=== PATIENT | female | born 1960 | race Caucasian/White ===

== ENCOUNTER → 2022-07-26 | Outpatient (CLI) | payer MEDICARE ==
--- NOTE | 2022-07-26 12:11 | CT ---
EXAMINATION TYPE: CT angio chest CT DLP: 297.9 mGycm, Automated exposure control for dose reduction was used. DATE OF EXAM: 07/26/2022 11:59 AM COMPARISON: None CLINICAL INDICATION:Female, 62 years old with history of R06.02; PE TECHNIQUE/CONTRAST: CTA scan of the thorax is performed with IV Contrast, patient injected with 50 mL of Isovue 300, pulm onary embolism protocol. MIP images are created and reviewed. FINDINGS: Pulmonary Artery: There is no evidence for a central filling defect within the pulmonary vasculature to suggest acute pulmonary embolism. Limited evaluation of the subsegmental branches secondary to randall us timing. The pulmonary artery is of normal size. There is reflux of contrast into the IVC. Lungs/Pleura: No evidence of focal consolidation, pleural effusion or pneumothorax. Linear scarring a nd/or atelectasis within the left lower lobe. Airway: Large airways are patent. Heart: Not enlarged. No pericardial effusion. Vasculature: Ascending thoracic aortic aneurysm measuring up to 4.0 cm. Mediastinum: No gross evidence of adenopathy. Musculoskeletal: No acute osseous abnormalities. Benign vertebral hemangioma involving the T11 verteb ral body. Soft Tissues: Unremarkable. Lower neck: No significant findings. Upper Abdomen: No significant findings. IMPRESSION: 1. No evidence of central pulmonary embolism. Limited evaluation of the subsegmental branches. 2. Ascending thoracic aortic aneurysm measuring up to 4.0 cm.
== END | disposition home or self-care (01) ==
LOC: RADCTMAIN 10:56
PROVIDERS: ATTEND Physician Assistant
DX: I71.21 Aneurysm of the ascending aorta, without rupture (principal); R06.02 Shortness of breath; R07.1 Chest pain on breathing; M54.6 Pain in thoracic spine
CPT/HCPCS: 71275; Q9967

== ENCOUNTER → 2022-08-06 | Outpatient (CLI) | payer MEDICARE | END | disposition home or self-care (01) | LOC: LABWHC1 12:43 | PROVIDERS: ATTEND Physician Assistant | DX: Z77.120 Contact with and (suspected) exposure to mold (toxic) (principal) ==

== ENCOUNTER → 2022-08-22 | Outpatient (CLI) | payer MEDICARE ==
--- NOTE | 2022-08-23 17:53 | MR ---
EXAMINATION TYPE: MR thoracic spine wo/w con DATE OF EXAM: 08/22/2022 COMPARISON: Correlation CT chest 07/26/2022 HISTORY: 62-year-old female D18.00, M54.6, Mid back pain, hemangioma Technique: Multiplanar, multisequence images of the thoracic spine were obtained before and after adm inistration of 8 mL intravenous Gadavist gadolinium contrast. FINDINGS: There is levoconvex curvature centered along the upper thoracic spine. Accentuated mid thoracic kypho sis. There is moderate degenerative disc disease with desiccated, and air, and bulging discs. Small e ndplate Schmorl's nodes mid thoracic spine. Overall vertebral body heights are preserved and alignment is maintained. Disc osteophyte complex are present at multiple levels in the cervical spine with impression and mild indentation onto the ventral cord at multiple levels. Variable mild to moderate spinal canal stenose s are present particularly at C3-C4, C4-C5, and C5-C6. There is a left paracentral disc protrusion at T5-T6, T6/T7, T7-T8. No significant spinal canal steno sis seen within the thoracic spine. Normal course, caliber, and signal intensity of the thoracic spinal cord. No abnormal enhancement wit hin the spinal canal. A 2.4 cm T2 and T1 bright round lesion within the T11 vertebral body shows heterogeneous enhancement. Stippled and corduroy appearance is typical of a fatty matrix hemangioma. Scattered facet arthropathy. Very minimal mild neuroforaminal stenoses within the upper thoracic spin e. IMPRESSION: 1. A 2.4 cm benign, fatty matrix hemangioma of the T11 vertebral body. 2. Moderate degenerative disc disease throughout the thoracic spine. Slight levoconvex curvature eleanor g the upper third thoracic spine and accentuated mid thoracic kyphosis. No vertebral compression princess apse or malalignment. 3. Disc osteophyte complexes cause variable mild and moderate spinal canal stenoses in the cervical s pine. No large focal disc herniation or significant spinal canal stenosis in the thoracic spine. 4. Small left paracentral disc protrusions are present from T5 through T8 levels. Again, no significa nt spinal canal stenosis.
== END | disposition home or self-care (01) ==
LOC: MERGE 10:35 → RADMRIMAIN 10:35
PROVIDERS: ATTEND Family Medicine
DX: D18.00 Hemangioma unspecified site (principal); M51.34 Other intervertebral disc degeneration, thoracic region; M25.78 Osteophyte, vertebrae; M48.02 Spinal stenosis, cervical region; M51.24 Other intervertebral disc displacement, thoracic region
CPT/HCPCS: 72157; A9585

== ENCOUNTER 2024-01-08 07:26 | Inpatient (IN) | payer MEDICARE ==
--- NOTE | 2024-01-08 08:07 | ED ---
Arrhythmia/Palpitations HPI - General Chief Complaint: Arrhythmia/Palpitations Stated Complaint: fast heart rate/SOB Time Seen by Provider: 01/08/24 07:29 Source: patient, RN notes reviewed Mode of arrival: ambulatory Limitations: no limitations - History of Present Illness Initial Comments: 63-year-old female presents emergency department complaint of palpitations, shortness of breath. Patient states that she has been ill with an upper respiratory infection and was given steroids and just finished a course steroids. Patient states that she felt like her heart was racing she was recently placed on metoprolol this week started at 12.5 twice daily and switch to 25 mg twice daily. Patient states she still having his palpitations and felt worse this morning. She states she had a Holter monitor in the past which showed some irregular rhythm but was never diagnosed with A-fib. Patient denies any fever no chest pain currently. Denies any leg pain or leg swelling. - Related Data Home Medications Medication Instructions Recorded Confirmed Cyclobenzaprine [Flexeril] 10 mg PO DAILY PRN 07/26/22 01/08/24 HYDROcodone/APAP 7.5-325MG [[place] 1 tab PO DAILY PRN 07/26/22 01/08/24 7.5-325] L.acidoph,Paracasei, B.lactis 1 cap PO DAILY 07/26/22 01/08/24 [Probiotic] Mecobalamin [Methyl B-12] 1,000 mcg PO DAILY 07/26/22 01/08/24 Rascon Revive Supplement 1 tab PO DAILY 01/08/24 01/08/24 Metoprolol Succinate [Metoprolol 37.5 mg PO DAILY 01/08/24 01/08/24 Succinate ER] Zinc Picolinate 50 mg PO DAILY 01/08/24 01/08/24 Allergies Allergy/AdvReac Type Severity Reaction Status Date / Time Penicillins Allergy Unknown Verified 01/08/24 09:43 Childhood Sulfa (Sulfonamide Allergy Anaphylaxis Verified 01/08/24 09:43 Antibiotics) tetanus and diphtheria Allergy Unknown Verified 01/08/24 09:43 toxoids Childhood Review of Systems ROS Statement: Those systems with pertinent positive or pertinent negative responses have been documented in the HPI. ROS Other: All systems not noted in ROS Statement are negative. Past Medical History Past Medical History: GERD/Reflux Additional Past Medical History / Comment(s): spinal stenosis, History of Any Multi-Drug Resistant Organisms: None Reported Past Surgical History: Adenoidectomy, Tonsillectomy Past Psychological History: No Psychological Hx Reported Smoking Status: Never smoker Past Alcohol Use History: None Reported Past Drug Use History: None Reported General Exam Limitations: no limitations General appearance: alert, in no apparent distress Head exam: Present: atraumatic, normocephalic, normal inspection Neck exam: Present: normal inspection. Absent: tenderness, meningismus, lym phadenopathy Respiratory exam: Present: normal lung sounds bilaterally. Absent: respiratory distress, wheezes, rales, rhonchi, stridor Cardiovascular Exam: Present: tachycardia, irregular rhythm, normal heart sounds. Absent: regular rate, normal rhythm, systolic murmur, diastolic murmur, rubs, gallop, clicks GI/Abdominal exam: Present: soft, normal bowel sounds. Absent: distended, tenderness, guarding, rebound, rigid Course Vital Signs 01/08/24 01/08/24 01/08/24 07:28 10:26 11:00 Temperature 97.8 F Pulse Rate 134 H 104 H 109 H Respiratory 20 16 22 Rate Blood Pressure 130/75 117/70 93/67 O2 Sat by Pulse 100 98 98 Oximetry 01/08/24 11:30 Temperature Pulse Rate 94 Respiratory 16 Rate Blood Pressure 122/91 O2 Sat by Pulse 97 Oximetry EKG Findings - EKG Comments: EKG Findings:: EKG performed at 7: 38 A-fib with a rate of 119 QRS 89 QT/QTc 314/386 - EKG Results: EKG: interpreted by CASTRO Medical Decision Making - Medical Decision Making Was pt. sent in by a medical professional or institution (, PA, STYLIST APPRENTICE, urgent care, hospital, or snf...) When possible be specific @ -No Did you speak to anyone other than the patient for history (EMS, parent, family, police, friend...)? What history was obtained from this source @ -No Did you review nursing and triage notes (agree or disagree)? Why? @ -I reviewed and agree with nursing and triage notes Were old charts reviewed (outside hosp., previous admission, EMS record, old EKG, old radiological studies, urgent care reports/EKG's, snf records)? Report findings @ -No old charts were reviewed Differential Diagnosis (chest pain, altered mental status, abdominal pain women, abdominal pain men, vaginal bleeding, weakness, fever, dyspnea, syncope, headache, dizziness, GI bleed, back pain, seizure, CVA, palpatations, mental health, musculoskeletal)? @ -Differential Palpitations Ventricular arrhythmias, atrial arrhythmias, myocardial infarction, anemia, thyrotoxicosis, electrolyte imbalance, hypokalemia, pulmonary embolism, pulmonary disease, drugs, alcohol, anxiety, stress.... This is not meant to be an all-inclusive list. EKG interpreted by me (3pts min.). @ -As above X-rays interpreted by me (1pt min.). @ -Chest ray shows no acute cardiopulmonary process CT interpreted by me (1pt min.). @ -None done U/S interpreted by me (1pt. min.). @ -None done What testing was considered but not performed or refused? (CT, X-rays, U/S, labs)? Why? @ -None What meds were considered but not given or refused? Why? @ -None Did you discuss the management of the patient with other professionals ( professionals i.e. , PA, STYLIST APPRENTICE, lab, RT, psych nurse, clinical social work therapist, apprentice painter neckties, teacher, purchasing officer, human services case manager)? Give summary @ -Sound physician for admission Was smoking cessation discussed for >3mins.? @ -No Was critical care preformed (if so, how long)? @ -35 minutes Were there social determinants of health that impacted care today? How? (Homelessness, low income, unemployed, alcoholism, drug addiction, transportation, low edu. Level, literacy, decrease access to med. care, long-term, rehab)? @ -No Was there de-escalation of care discussed even if they declined (Discuss DNR or withdrawal of care, Hospice)? DNR status @ -No What co-morbidities impacted this encounter? (DM, HTN, Smoking, COPD, CAD, Cancer, CVA, ARF, Chemo, Hep., AIDS, mental health diagnosis, sleep apnea, morbid obesity)? @ -None Was patient admitted / discharged? Hospital course, mention meds given and route, prescriptions, significant lab abnormalities, going to OR and other pertinent info. @ -Admitted patient's found to be in A-fib RVR patient was started on Cardizem after Cardizem bolus patient's laboratory studies unremarkable. Patient will continue Cardizem cardiology evaluation. Patient was also started on heparin. Undiagnosed new problem with uncertain prognosis? @ -No Drug Therapy requiring intensive monitoring for toxicity (Heparin, Nitro, Insulin, Cardizem)? @ -Heparin, Cardizem Were any procedures done? @ -No Diagnosis/symptom? @ -A-fib RVR Acute, or Chronic, or Acute on Chronic? @ -Acute Uncomplicated (without systemic symptoms) or Complicated (systemic symptoms)? @ -Complicated Side effects of treatment? @ -No Exacerbation, Progression, or Severe Exacerbation? @ -No Poses a threat to life or bodily function? How? (Chest pain, [place], MA, pneumonia, PE, COPD, DKA, ARF, appy, cholecystitis, CVA, Diverticulitis, Homicidal, Suicidal, threat to staff... and all critical care pts) @ -Yes dysrhythmia possible cardiac arrest - Lab Data Result diagrams: 01/08/24 09:31 01/08/24 09:31 Lab Results 01/08/24 01/08/24 01/08/24 Range/Units 09:31 09:31 09:31 WBC 6.4 (3.8-10.6) k/uL RBC 4.61 (3.80-5.40) m/uL Hgb 13.7 (11.4-16.0) gm/dL Hct 42.4 (34.0-46.0) % MCV 92.0 (80.0-100.0) fL MCH 29.6 (25.0-35.0) pg MCHC 32.2 (31.0-37.0) g/dL RDW 12.7 (11.5-15.5) % Plt Count 230 (150-450) k/uL MPV 7.7 Neutrophils % 60 % Lymphocytes % 26 % Monocytes % 5 % Eosinophils % 7 % Basophils % 1 % Neutrophils # 3.9 (1.3-7.7) k/uL Lymphocytes # 1.7 (1.0-4.8) k/uL Monocytes # 0.3 (0-1.0) k/uL Eosinophils # 0.5 (0-0.7) k/uL Basophils # 0.0 (0-0.2) k/uL PT 11.3 (10.0-12.5) sec INR 1.0 (<1.2) APTT 24.2 (22.0-30.0) sec Sodium 139 (137-145) mmol/L Potassium 5.5 H (3.5-5.1) mmol/L Chloride 106 (98-107) mmol/L Carbon Dioxide 24 (22-30) mmol/L Anion Gap 9 mmol/L BUN 13 (7-17) mg/dL Creatinine 0.67 (0.52-1.04) mg/dL Est GFR (CKD-EPI)AfAm >90 (>60 ml/min/1.73 sqM) Est GFR (CKD-EPI)NonAf >90 (>60 ml/min/1.73 sqM) Glucose 107 H (74-99) mg/dL Calcium 9.6 (8.4-10.2) mg/dL Magnesium 2.0 (1.6-2.3) mg/dL Total Bilirubin 1.8 H (0.2-1.3) mg/dL AST 40 H (14-36) U/L ALT 58 H (4-34) U/L Alkaline Phosphatase 55 (38-126) U/L Troponin I (0.000-0.034) ng/mL Total Protein 7.5 (6.3-8.2) g/dL Albumin 4.7 (3.5-5.0) g/dL 01/08/24 Range/Units 09:31 WBC (3.8-10.6) k/uL RBC (3.80-5.40) m/uL Hgb (11.4-16.0) gm/dL Hct (34.0-46.0) % MCV (80.0-100.0) fL MCH (25.0-35.0) pg MCHC (31.0-37.0) g/dL RDW (11.5-15.5) % Plt Count (150-450) k/uL MPV Neutrophils % % Lymphocytes % % Monocytes % % Eosinophils % % Basophils % % Neutrophils # (1.3-7.7) k/uL Lymphocytes # (1.0-4.8) k/uL Monocytes # (0-1.0) k/uL Eosinophils # (0-0.7) k/uL Basophils # (0-0.2) k/uL PT (10.0-12.5) sec INR (<1.2) APTT (22.0-30.0) sec Sodium (137-145) mmol/L Potassium (3.5-5.1) mmol/L Chloride (98-107) mmol/L Carbon Dioxide (22-30) mmol/L Anion Gap mmol/L BUN (7-17) mg/dL Creatinine (0.52-1.04) mg/dL Est GFR (CKD-EPI)AfAm (>60 ml/min/1.73 sqM) Est GFR (CKD-EPI)NonAf (>60 ml/min/1.73 sqM) Glucose (74-99) mg/dL Calcium (8.4-10.2) mg/dL Magnesium (1.6-2.3) mg/dL Total Bilirubin (0.2-1.3) mg/dL AST (14-36) U/L ALT (4-34) U/L Alkaline Phosphatase (38-126) U/L Troponin I <0.012 (0.000-0.034) ng/mL Total Protein (6.3-8.2) g/dL Albumin (3.5-5.0) g/dL Critical Care Time Critical Care Time: Yes Total Critical Care Time: 35 Disposition Clinical Impression: Atrial fibrillation with RVR Disposition: ADMITTED IP TO THIS HOSP Referrals: Vinny Calero DO [Primary Care Provider] - 1-2 days Time of Disposition: 11:44
--- NOTE | 2024-01-08 09:34 | XR ---
EXAMINATION TYPE: XR chest 2V DATE OF EXAM: 01/08/2024 COMPARISON: None INDICATION: Dysrhythmia TECHNIQUE: Frontal and lateral views of the chest are obtained. FINDINGS: The heart size is normal. The pulmonary vasculature is normal. The lungs are clear. IMPRESSION: 1. No acute pulmonary process. [facility], , 01/08/2024 9:31 AM
[2024-01-08 10:09] LABS: Basophils % (A) 1 %; Eosinophils # (A) 0.5 k/uL (0-0.7); Eosinophils % (A) 7 %; HCT 42.4 % (34.0-46.0); HGB 13.7 gm/dL (11.4-16.0); Lymphocytes # (A) 1.7 k/uL (1.0-4.8); Lymphocytes % (A) 26 %; MCH 29.6 pg (25.0-35.0); MCHC 32.2 g/dL (31.0-37.0); Mean Platelet Volume 7.7; Monocytes # (A) 0.3 k/uL (0-1.0); Monocytes % (A) 5 %; Neutrophils # (A) 3.9 k/uL (1.3-7.7); Neutrophils % (A) 60 %; Platelet Count 230 k/uL (150-450); RBC 4.61 m/uL (3.80-5.40); RDW 12.7 % (11.5-15.5); WBC 6.4 k/uL (3.8-10.6)
[2024-01-08] MEDS: SODIUM CHLORIDE 0.9% 1,000 ML IV STA (10:13)
[2024-01-08] MEDS: DILTIAZEM 125 MG in SODIUM CHLORIDE 0.9% 100 ML IV SCH (10:14)
[2024-01-08] MEDS: DILTIAZEM DRIP BOLUS FROM BAG 1 MG SOLN IV ONE (10:15)
[2024-01-08 10:24] LABS: ALT 58 U/L (4-34); African American GFR (CKD) >90 (>60 ml/min/1.73 sqM); Anion Gap 9 mmol/L; Blood Urea Nitrogen 13 mg/dL (7-17); Calcium 9.6 mg/dL (8.4-10.2); Carbon Dioxide 24 mmol/L (22-30); Chloride 106 mmol/L (98-107); Glucose 107 mg/dL (74-99); Non-African American GFR(CKD) >90 (>60 ml/min/1.73 sqM); Sodium 139 mmol/L (137-145); Total Bilirubin 1.8 mg/dL (0.2-1.3)
[2024-01-08 10:30] LABS: Partial Thromboplastin Time 24.2 sec (22.0-30.0); Prothrombin Time 11.3 sec (10.0-12.5)
[2024-01-08 10:56] LABS: Potassium 5.5 mmol/L (3.5-5.1)
[2024-01-08 10:57] LABS: AST 40 U/L (14-36); Albumin 4.7 g/dL (3.5-5.0); Alkaline Phosphatase 55 U/L (38-126); Total Protein 7.5 g/dL (6.3-8.2)
[2024-01-08] MEDS ORDERED: HEPARIN SODIUM 1,000 UN/ML (10ML VL) IV PRN (11:38)
[2024-01-08] MEDS ORDERED: NITROGLYCERIN SL TABS 0.4 MG TAB SUBLINGUAL PRN (11:44)
[2024-01-08] MEDS: HEPARIN SOD,PORK IN 0.45% NACL 25,000 UNIT in 0.45% NACL 1 250ML.BAG IV SCH (12:57)
[2024-01-08] MEDS: HEPARIN SODIUM 1,000 UN/ML (10ML VL) IV ONE (12:58)
[2024-01-08] MEDS: METOPROLOL TARTRATE 50 MG TAB PO SCH (13:10)
[2024-01-08] MEDS: APIXABAN 5 MG TAB PO SCH (13:10)
--- NOTE | 2024-01-08 14:10 | P.CRDCN ---
History of Present Illness Consult date: 01/08/24 Reason for Consult (text): AFib with RVR History of present illness: This is a 63-year-old female patient with past medical history of chronic back pain, CVA in 2008. We have been asked to evaluate the patient for A-fib with RVR. Patient states that she is scheduled to see a sole tacker at [facility]ology [facility]. She was diagnosed with atrial fibrillation last week by her PCP. She recently had a virus with a cough and steroids were provided at that time. She is feels that she feels different since she had the virus but not more specific than this. She denies having any palpitations. No shortness of breath. She continues to have a cough. She did see her PCP yesterday and was instructed to come into the hospital for further evaluation. 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 No shortness of breath, no chest pain, no dizziness no syncopal episodes. She denies any lower extremity edema. No PND. She normally sleeps once 6 pillows now but usually it is 3 pillows. She is a non-smoker. No history of hypertension or hyperlipidemia. She drinks caffeine daily. No alcohol for the past couple years due to causing migraines. She has an order in place to start her on heparin drip. Patient has been started on Cardizem drip following a 10 mg bolus. Blood pressure 124/102, heart rate 130. Patient is seen today in the emergency center waiting for a bed on the cardiac stepdown unit. EKG: Atrial fibrillation 119 bpm Chest x-ray: No acute process Laboratory studies: CBC normal. Potassium 5.5, creatinine 0.67, magnesium 2. AST 40, ALT 50, alkaline phosphatase 55, total bilirubin 1.8. Troponin negative x 2. Home cardiac medications: Metoprolol succinate 37.5 mg daily Review Of Systems: At the time of my exam: CONSTITUTIONAL: Denies fever or chills. HEENT: Denies blurred vision, vision changes, or eye pain. Denies hemoptysis CARDIOVASCULAR: Denies chest pain. Denies orthopnea. Denies PND. Denies palpitations RESPIRATORY: Denies shortness of breath. GASTROINTESTINAL: Denies abdominal pain. Denies nausea or vomiting. HEMATOLOGIC: Denies bleeding disorders. GENITOURINARY: Denies any blood in urine. SKIN: Denies puritis. Denies rash. Physical examination: Gen: This is a 63-year-old female in no acute distress VS: reviewed HEENT: Head is atraumatic, normocephalic. Pupils equal, round. Sclerae is anicteric. NECK: Supple. No JVD. LUNGS: Clear to auscultation. No wheezes or rhonchi. No intercostal retractions. HEART: Regular rate and rhythm. No murmur. ABDOMEN: Soft No tenderness. EXTREMITIES: No pedal edema. No calf tenderness. NEUROLOGICAL: Patient is awake, alert and oriented x3. Assessment: New onset paroxysmal atrial fibrillation presenting with RVR Chronic back pain CVA in 2008 Plan: Discontinue heparin drip and start patient on Eliquis 5 mg twice daily Start patient on Lopressor 50 mg twice daily and if heart rate is controlled, discontinue Cardizem drip Obtain 2-D echocardiogram and Doppler study to assess cardiac structure and function Further recommendations to follow based upon clinical course Thank you kindly for this consultation. Nurse practitioner note has been reviewed, I agree with documented findings and plan of care. Patient was seen and examined. Past Medical History Past Medical History: GERD/Reflux Additional Past Medical History / Comment(s): spinal stenosis, History of Any Multi-Drug Resistant Organisms: None Reported Past Surgical History: Adenoidectomy, Tonsillectomy Past Psychological History: No Psychological Hx Reported Smoking Status: Never smoker Past Alcohol Use History: None Reported Past Drug Use History: None Reported Medications and Allergies Home Medications Medication Instructions Recorded Confirmed Type Cyclobenzaprine [Flexeril] 10 mg PO DAILY PRN 07/26/22 01/08/24 History HYDROcodone/APAP 7.5-325MG [[place] 1 tab PO DAILY PRN 07/26/22 01/08/24 History 7.5-325] L.acidoph,Paracasei, B.lactis 1 cap PO DAILY 07/26/22 01/08/24 History [Probiotic] Mecobalamin [Methyl B-12] 1,000 mcg PO DAILY 07/26/22 01/08/24 History Rascon Revive Supplement 1 tab PO DAILY 01/08/24 01/08/24 History Metoprolol Succinate [Metoprolol 37.5 mg PO DAILY 01/08/24 01/08/24 History Succinate ER] Zinc Picolinate 50 mg PO DAILY 01/08/24 01/08/24 History Allergies Allergy/AdvReac Type Severity Reaction Status Date / Time Penicillins Allergy Unknown Verified 01/08/24 09:43 Childhood Sulfa (Sulfonamide Allergy Anaphylaxis Verified 01/08/24 09:43 Antibiotics) tetanus and diphtheria Allergy Unknown Verified 01/08/24 09:43 toxoids Childhood Physical Exam Vitals: Vital Signs Temp Pulse Resp BP Pulse Ox 01/08/24 11:54 124 H 01/08/24 11:30 94 16 122/91 97 01/08/24 11:00 109 H 22 93/67 98 01/08/24 10:26 104 H 16 117/70 98 01/08/24 07:28 97.8 F 134 H 20 130/75 100 Intake and Output 01/07/24 01/08/24 01/08/24 22:59 06:59 14:59 Other: Weight 86.183 kg Results 01/08/24 09:31 01/08/24 09:31 Cardiac Enzymes 01/08/24 01/08/24 Range/Units 09:31 09:31 AST 40 H (14-36) U/L Troponin I <0.012 (0.000-0.034) ng/mL Coagulation 01/08/24 Range/Units 09:31 PT 11.3 (10.0-12.5) sec APTT 24.2 (22.0-30.0) sec CBC 01/08/24 Range/Units 09:31 WBC 6.4 (3.8-10.6) k/uL RBC 4.61 (3.80-5.40) m/uL Hgb 13.7 (11.4-16.0) gm/dL Hct 42.4 (34.0-46.0) % Plt Count 230 (150-450) k/uL Comprehensive Metabolic Panel 01/08/24 Range/Units 09:31 Sodium 139 (137-145) mmol/L Potassium 5.5 H (3.5-5.1) mmol/L Chloride 106 (98-107) mmol/L Carbon Dioxide 24 (22-30) mmol/L BUN 13 (7-17) mg/dL Creatinine 0.67 (0.52-1.04) mg/dL Glucose 107 H (74-99) mg/dL Calcium 9.6 (8.4-10.2) mg/dL AST 40 H (14-36) U/L ALT 58 H (4-34) U/L Alkaline Phosphatase 55 (38-126) U/L Total Protein 7.5 (6.3-8.2) g/dL Albumin 4.7 (3.5-5.0) g/dL Current Medications Generic Name Dose Route Start Last Admin Trade Name Freq PRN Reason Stop Dose Admin Heparin Sodium (Porcine) 0 unit 01/08/24 11:38 Heparin Sodium 1,000 Un/Ml (10ml Vl) IV PER PROTOCOL PRN Low PTT Protocol Diltiazem HCl 125 mg/ Sodium 125 mls @ 5 mls/hr 01/08/24 09:45 01/08/24 10:14 Chloride IV 5 mg/hr .Q24H JOHANNE 5 mls/hr Administration 5 MG/HR Heparin Sodium/Sodium Chloride 250 mls @ 10 mls/hr 01/08/24 11:45 25,000 unit/ Sodium Chloride IV .Q24H JOHANNE Protocol 11.603 UNITS/KG/HR Nitroglycerin 0.4 mg 01/08/24 11:44 Nitroglycerin Sl Tabs 0.4 Mg Tab SUBLINGUAL Q5M PRN Chest Pain Intake and Output 01/07/24 01/08/24 01/08/24 22:59 06:59 14:59 Other: Weight 86.183 kg Patient Weight 01/09/24 06:59 Weight 86.183 kg 01/08/24 09:31 01/08/24 09:31
--- NOTE | 2024-01-08 16:16 | P.HPIM ---
History of Present Illness H&P Date: 01/08/24 63 year old F with PMH of CVA in 2008 presents to the ED. She reports viral URI 3 weeks ago (productive cough with yellow sputum and sore throat) that resolved. She did take a course of steroids at that time. Since then she reports intermittent palpitations with HR as high as 158. She reports orthopnea and sleeps on 6 pillows. She denies any exertional shortness of breath or lower extremity edema. No chest pain or dizziness. Does not smoke cigarettes or drink alcohol. One cup of coffee in the morning. She got prescribed Metoprolol 37.5 mg PO BID but symptoms persisted which prompted her to come to the ED. In the ED she underwent extensive evaluation. BP 103/75, HR 134, RR 20, T 97.8F, 100% on RA. CBC, Coag panel, CMP significant for K 5.5, glu 107, T. Bili 1.8, AST 40, ALT 58. Troponin < 0.012. EKG showed A Fib with RVR. CXR negative. Patient is admitted for further workup and management. Started on Cardizem bolus and drip now converted to sinus. General: non toxic, no distress, appears at stated age Derm: warm, dry Head: atraumatic, normocephalic, symmetric Eyes: EOMI, no lid lag, anicteric sclera Mouth: no lip lesion, mucus membranes moist Cardiovascular: S1S2 reg, no murmur Lungs: Clear to auscultation bilaterally, no rhonchi, no rales , no accessory muscle use Ext: no gross muscle atrophy, no edema, no contractures Neuro: no focal neuro deficits Psych: Alert, oriented, appropriate affect Based on my assessment of this patient, this patient meets a high complexity le harry of care. AFib with RVR: Metoprolol 50 mg PO BID. Eliquis 5 mg PO BID. Obtain TSH. Obtain Echo. Telemetry monitoring. Transaminitis: No complaints. Obstructive. Obtain Liver + GB US. Hyperkalemia which is hemolyzed. CODE STATUS: FULL CODE DVT Prophylaxis: Eliquis. GI Prophylaxis: Designated medical POA if patient is not able to make medical decisions for themselves: I have reviewed the following sap plant maintenance consultant notes: ED, Cardio. I have reviewed the results of the following tests: As above I have ordered the following tests: As above. I have discussed the care of this patient with the following independent historian: I have independently interpreted the following test below: EKG. I have discussed the management of this patient with the following physician: Past Medical History Past Medical History: GERD/Reflux Additional Past Medical History / Comment(s): spinal stenosis, History of Any Multi-Drug Resistant Organisms: None Reported Past Surgical History: Adenoidectomy, Tonsillectomy Past Psychological History: No Psychological Hx Reported Smoking Status: Never smoker Past Alcohol Use History: None Reported Past Drug Use History: None Reported Medications and Allergies Home Medications Medication Instructions Recorded Confirmed Type Cyclobenzaprine [Flexeril] 10 mg PO DAILY PRN 07/26/22 01/08/24 History HYDROcodone/APAP 7.5-325MG [Coleman 1 tab PO DAILY PRN 07/26/22 01/08/24 History 7.5-325] L.acidoph,Paracasei, B.lactis 1 cap PO DAILY 07/26/22 01/08/24 History [Probiotic] Mecobalamin [Methyl B-12] 1,000 mcg PO DAILY 07/26/22 01/08/24 History Rascon Revive Supplement 1 tab PO DAILY 01/08/24 01/08/24 History Metoprolol Succinate [Metoprolol 37.5 mg PO DAILY 01/08/24 01/08/24 History Succinate ER] Zinc Picolinate 50 mg PO DAILY 01/08/24 01/08/24 History Allergies Allergy/AdvReac Type Severity Reaction Status Date / Time Penicillins Allergy Unknown Verified 01/08/24 09:43 Childhood Sulfa (Sulfonamide Allergy Anaphylaxis Verified 01/08/24 09:43 Antibiotics) tetanus and diphtheria Allergy Unknown Verified 01/08/24 09:43 toxoids Childhood Physical Exam Vitals: Vital Signs Temp Pulse Resp BP Pulse Ox 01/08/24 11:54 124 H 01/08/24 11:30 94 16 122/91 97 01/08/24 11:00 109 H 22 93/67 98 01/08/24 10:26 104 H 16 117/70 98 01/08/24 07:28 97.8 F 134 H 20 130/75 100 Intake and Output 01/08/24 01/08/24 01/08/24 06:59 14:59 22:59 Other: Weight 86.183 kg Results CBC & Chem 7: 01/08/24 09:31 01/08/24 09:31 Labs: Abnormal Lab Results - Last 24 Hours (Table) 01/08/24 Range/Units 09:31 Potassium 5.5 H (3.5-5.1) mmol/L Glucose 107 H (74-99) mg/dL Total Bilirubin 1.8 H (0.2-1.3) mg/dL AST 40 H (14-36) U/L ALT 58 H (4-34) U/L
--- NOTE | 2024-01-08 20:05 | CA ---
Transthoracic Echo Report Name: Susan Bernabe Age: 63 Gender: F : 1960 Exam Date: 01/08/2024 17:03 Exam Location: [facility] Ht (in): 64 Wt (lb): 190 Ordering Physician: Rohini Vasquez Attending/Referring Phys: [id number], Pedro Fence Gate Assembler Zena Stephen, SHANAE Procedure CPT: Indications: afib Cardiac Hx: Technical Quality: Good Contrast 1: Total Dose (mL): Contrast 2: Total Dose (mL): MEASUREMENTS (Male / Female) Normal Values 2D ECHO LV Diastolic Diameter PLAX 4.9 cm 4.2 - 5.9 / 3.9 - 5.3 cm LV Systolic Diameter PLAX 3.7 cm IVS Diastolic Thickness 1.2 cm 0.6 - 1.0 / 0.6 - 0.9 cm LVPW Diastolic Thickness 1.2 cm 0.6 - 1.0 / 0.6 - 0.9 cm LV Relative Wall Thickness 0.5 RV Internal Dim ED PLAX 2.1 cm LA Systolic Diameter LX 4.5 cm 3.0 - 4.0 / 2.7 - 3.8 cm LV Diastolic Volume MOD BP 83.7 cm??? 67 - 155 / 56 - 104 cm??? LV Systolic Volume MOD BP 43.8 cm??? 22 - 58 / 19 - 49 cm??? LV Ejection Fraction MOD BP 47.6 % >= 55 % LV Cardiac Index MOD BP 974.2 cm???/min???m??? LV Diastolic Volume MOD 4C 69.9 cm??? LV Systolic Volume MOD 4C 35.6 cm??? LV Ejection Fraction MOD 4C 49.0 % LV Cardiac Index MOD 4C 836.2 cm???/min???m??? LV Diastolic Length 4C 7.1 cm LV Systolic Length 4C 6.4 cm LV Diastolic Volume MOD 2C 93.2 cm??? LV Systolic Volume MOD 2C 49.0 cm??? LV Ejection Fraction MOD 2C 47.5 % LV Cardiac Index MOD 2C 1081.9 cm???/min???m??? LV Diastolic Length 2C 7.6 cm LV Systolic Length 2C 7.1 cm M-MODE Aortic Root Diameter MM 3.2 cm LA Systolic Diameter MM 4.7 cm LA Ao Ratio MM 1.4 AV Cusp Separation MM 2.1 cm DOPPLER Mitral E Point Velocity 89.1 cm/s Mitral A Point Velocity 36.2 cm/s Mitral E to A Ratio 2.5 MV Deceleration Time 217.1 ms MV E' Velocity 7.2 cm/s Mitral E to MV E' Ratio 12.4 TR Peak Velocity 201.2 cm/s TR Peak Gradient 16.2 mmHg Right Ventricular Systolic Press 21.4 mmHg FINDINGS Left Ventricle Left ventricular ejection fraction is estimated at 40-45 %. Mildly increased septal wall thickness. Mildly increased posterior wall thickness.Moderately decreased left ventricular ejection fraction. No obvious regional wall motion abnormalities. Right Ventricle Normal right ventricular size and function. Right ventricular systolic pressure within normal limits. Right Atrium Moderate right atrial dilatation. Left Atrium Moderately increased left atrial diameter. Mitral Valve Structurally normal mitral valve. Moderate mitral regurgitation. No mitral stenosis. Aortic Valve Trileaflet aortic valve. No aortic valve stenosis or regurgitation. Tricuspid Valve Structurally normal tricuspid valve. No tricuspid stenosis. [id number] tricuspid regurgitation. Pulmonic Valve Structurally normal pulmonic valve. Trace pulmonic regurgitation. No pulmonic stenosis. Pericardium No pericardial or pleural effusion. Aorta Normal size aortic root and proximal ascending aorta. CONCLUSIONS Diagnosis: Atrial fibrillation Mildly reduced LV systolic function ejection fraction 40-45% Biatrial enlargement Previewed by: Dr. Bill Mancini MD (Electronically Signed) Final Date: 08 January 2024 20:04
--- NOTE | 2024-01-09 09:55 | US ---
EXAMINATION TYPE: US liver DATE OF EXAM: 01/08/2024 COMPARISON: NONE CLINICAL INDICATION: Female, 63 years old with history of add gallbladder for obstructive transaminit is; abn labs, no symptoms TECHNIQUE: Multiple sonographic images of the right upper quadrant are obtained. FINDINGS: EXAM MEASUREMENTS: Liver Length: 16.7 cm Gallbladder Wall: 0.2 cm CBD: 0.6 cm Right Kidney: 9.6 x 4.4 x 4.5 cm Pancreas: wnl Liver: wnl Gallbladder: wnl Evidence for sonographic Rebollar's sign: no CBD: wnl Right Kidney: wnl IMPRESSION: 1. Mild prominence of the liver, no discrete mass is evident [facility], , 01/09/2024 9:51 AM
--- NOTE | 2024-01-09 10:33 | P.DS ---
Providers Date of admission: 01/08/24 11:51 Expected date of discharge: 01/09/24 Attending physician: Bernardo Chacon Consults: 01/08/24 11:44 Consult Physician Urgent Consulting Provider: Jean Mcclain Consult Reason/Comments: chest pain Do you want consulting provider notified?: Yes Primary care physician: [facility] Course: 63 year old F with PMH of CVA in 2008 presents to the ED. She reports viral URI 3 weeks ago (productive cough with yellow sputum and sore throat) that resolved. She did take a course of steroids at that time. Since then she reports int ermittent palpitations with HR as high as 158. She reports orthopnea and sleeps on 6 pillows. She denies any exertional shortness of breath or lower extremity edema. No chest pain or dizziness. Does not smoke cigarettes or drink alcohol. One cup of coffee in the morning. She got prescribed Metoprolol 37.5 mg PO BID but symptoms persisted which prompted her to come to the ED. In the ED she underwent extensive evaluation. BP 103/75, HR 134, RR 20, T 97.8F, 100% on RA. CBC, Coag panel, CMP significant for K 5.5, glu 107, T. Bili 1.8, AST 40, ALT 58. Troponin < 0.012. EKG showed A Fib with RVR. CXR negative. Patient is admitted for further workup and management. Started on Cardizem bolus and drip now converted to sinus. Cardiology consulted, Metoprolol increased to 50 mg PO BID and started on Eliquis. Echo showed EF 40-45%. Liver US done due to transaminitis with results showing mild prominence and no discrete mass. 01/08 Patient was seen and examined. No events overnight. Telemetry shows bradycardia with HR in the 50s and 60s. No chest pain, SOB or dizziness. Frustrated about being here and would like to go home. Discussed with Rohini WHITE, cleared for discharge. Prescription for Eliquis and Metoprolol sent to pharmacy. Follow up with PCP within 1-2 days and Cardiology within 1 week of discharge. General: non toxic, no distress, appears at stated age Derm: warm, dry Head: atraumatic, normocephalic, symmetric Eyes: EOMI, no lid lag, anicteric sclera Mouth: no lip lesion, mucus membranes moist Cardiovascular: good distal perfusion in all 4 extremities Lungs: breathing comfortably, no accessory muscle use Ext: no gross muscle atrophy, no edema, no contractures Neuro: no focal neuro deficits Psych: Alert, oriented, appropriate affect Discharge Diagnosis: AFib with RVR Transaminitis: No complaints. Obstructive. Obtain Liver + GB US. Hyperkalemia which is hemolyzed This complex discharge took 35 minutes to complete. Patient Condition at Discharge: Stable Plan - Discharge Summary New Discharge Prescriptions: New Apixaban [Eliquis] 5 mg PO BID #60 tab Metoprolol Tartrate [Lopressor] 50 mg PO BID #60 tab Continue Mecobalamin [Methyl B-12] 1,000 mcg PO DAILY HYDROcodone/APAP 7.5-325MG [Miles 7.5-325] 1 tab PO DAILY PRN PRN Reason: SPINE PAIN Cyclobenzaprine [Flexeril] 10 mg PO DAILY PRN PRN Reason: SPINE PAIN Rascon Revive Supplement 1 tab PO DAILY L.acidoph,Paracasei, B.lactis [Probiotic] 1 cap PO DAILY Zinc Picolinate 50 mg PO DAILY Discontinued Metoprolol Succinate [Metoprolol Succinate ER] 37.5 mg PO DAILY Discharge Medication List Cyclobenzaprine [Flexeril] 10 mg PO DAILY PRN 07/26/22 [History] HYDROcodone/APAP 7.5-325MG [Miles 7.5-325] 1 tab PO DAILY PRN 07/26/22 [History] L.acidoph,Paracasei, B.lactis [Probiotic] 1 cap PO DAILY 07/26/22 [History] Mecobalamin [Methyl B-12] 1,000 mcg PO DAILY 07/26/22 [History] Rascon Revive Supplement 1 tab PO DAILY 01/08/24 [History] Zinc Picolinate 50 mg PO DAILY 01/08/24 [History] Apixaban [Eliquis] 5 mg PO BID #60 tab 01/09/24 [Rx] Metoprolol Tartrate [Lopressor] 50 mg PO BID #60 tab 01/09/24 [Rx] Follow up Appointment(s)/Referral(s): Madison Penn MD [STAFF PHYSICIAN] - 1 Week Vinny Calero DO [Primary Care Provider] - 1-2 days Activity/Diet/Wound Care/Special Instructions: Diet: Regular Discharge Disposition: HOME SELF-CARE
[2024-01-09 11:01] VITALS: BP 118/65; PULSE 65; RESP 18; TEMP 98.2
--- NOTE | 2024-01-09 12:02 | P.PN ---
Subjective Progress Note Date: 01/09/24 Reason for Consult (text): AFib with RVR History of present illness: This is a 63-year-old female patient with past medical history of chronic back pain, CVA in 2008. We have been asked to evaluate the patient for A-fib with RVR. Patient states that she is scheduled to see a stationary boiler fireman at [facility]. She was diagnosed with atrial fibrillation last week by her PCP. She recently had a virus with a cough and steroids were provided at that time. She is feels that she feels different since she had the virus but not more specific than this. She denies having any palpitations. No shortness of breath. She continues to have a cough. She did see her PCP yesterday and was instructed to come into the hospital for further evaluation. 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 No shortness of breath, no chest pain, no dizziness no syncopal episodes. She denies any lower extremity edema. No PND. She normally sleeps once 6 pillows now but usually it is 3 pillows. She is a non-smoker. No history of hypertension or hyperlipidemia. She drinks caffeine daily. No alcohol for the past couple years due to causing migraines. She has an order in place to start her on heparin drip. Patient has been started on Cardizem drip following a 10 mg bolus. Blood pressure 124/102, heart rate 130. Patient is seen today in the emergency center waiting for a bed on the cardiac stepdown unit. EKG: Atrial fibrillation 119 bpm Chest x-ray: No acute process Laboratory studies: CBC normal. Potassium 5.5, creatinine 0.67, magnesium 2. AST 40, ALT 50, alkaline phosphatase 55, total bilirubin 1.8. Troponin negative x 2. Home cardiac medications: Metoprolol succinate 37.5 mg daily 01/08 Patient is seen today in the ER waiting for a bed on the CSD unit. Patient is in Sinus rhythm. BP 111/91, HR 61, PO 97% RA. TSH 1.97. Echocardiogram reveals EF of 40 to 45%, biatrial enlargement. Results of the echocardiogram reviewed with the patient. Yesterday, patient was started on Lopressor and Cardizem drip was discontinued. Patient was also transition from heparin to Eliquis oral. She denies having any chest pain, shortness of breath, palpitations no dizziness. Physical examination: Gen: This is a 63-year-old female in no acute distress VS: reviewed HEENT: Head is atraumatic, normocephalic. Pupils equal, round. Sclerae is anicteric. NECK: Supple. No JVD. LUNGS: Clear to auscultation. No wheezes or rhonchi. No intercostal retractions. HEART: Regular rate and rhythm. No murmur. ABDOMEN: Soft No tenderness. EXTREMITIES: No pedal edema. No calf tenderness. NEUROLOGICAL: Patient is awake, alert and oriented x3. Assessment: New onset paroxysmal atrial fibrillation presenting with RVR Chronic back pain CVA in 2008 Plan: Patient is cleared for discharge from cardiology and may follow-up with the stationary boiler fireman she has an appointment with or follow-up with Dr. Penn. Nurse practitioner note has been reviewed, I agree with documented findings and plan of care. Patient was seen and examined. Objective - Vital Signs Vital signs: Vital Signs Temp 97.8 F 01/08/24 07:28 Pulse 56 L 01/09/24 03:52 Resp 16 01/09/24 03:52 BP 123/75 01/09/24 03:52 Pulse Ox 97 01/08/24 22:41 FiO2 Intake & Output 01/08/24 01/09/24 01/09/24 18:59 06:59 18:59 Weight 86.183 kg - Labs CBC & Chem 7: 01/08/24 09:31 01/08/24 09:31 Labs: Abnormal Lab Results - Last 24 Hours (Table) 01/08/24 Range/Units 09:31 Potassium 5.5 H (3.5-5.1) mmol/L Glucose 107 H (74-99) mg/dL Total Bilirubin 1.8 H (0.2-1.3) mg/dL AST 40 H (14-36) U/L ALT 58 H (4-34) U/L
== END 2024-01-09 11:04 | disposition home or self-care (01) | DRG 310 ==
LOC: EC 07:26 → 3SCARD 11:51
PROVIDERS: ADMIT Student in an Organized Health Care Education/Training Program; ATTEND Student in an Organized Health Care Education/Training Program
DX: I48.0 Paroxysmal atrial fibrillation (principal); G89.29 Other chronic pain; G43.909 Migraine, unspecified, not intractable, without status migrainosus; E87.5 Hyperkalemia; M54.9 Dorsalgia, unspecified; M48.00 Spinal stenosis, site unspecified; R00.1 Bradycardia, unspecified; R74.01 Elevation of levels of liver transaminase levels; Z86.73 Personal history of transient ischemic attack (TIA), and cerebral infarction without residual deficits; Z11.52 Encounter for screening for COVID-19; Z79.899 Other long term (current) drug therapy; Z88.0 Allergy status to penicillin; Z88.2 Allergy status to sulfonamides; Z88.7 Allergy status to serum and vaccine
CPT/HCPCS: 36415; 71046; 76705; 80053; 83735; 84443; 84484; 85025; 85610; 85730; 93005; 93306; 96361; 96374; 99291

== ENCOUNTER → 2024-02-09 | Outpatient (CLI) | payer MEDICARE ==
--- NOTE | 2024-02-09 11:55 | XR ---
EXAMINATION TYPE: XR chest 2V DATE OF EXAM: 02/09/2024 COMPARISON: 01/08/2024 HISTORY: 64-year-old female [id number], shortness of breath TECHNIQUE: Frontal and lateral views FINDINGS: Heart mild to moderately enlarged. Pulmonary vasculature within normal limits. No consolidation or pl eural effusion. IMPRESSION: Mild to moderate cardiomegaly. Otherwise, no acute process seen. [facility], , 02/09/2024 11:53 AM
== END | disposition home or self-care (01) ==
LOC: RADXRYALE 09:44
PROVIDERS: ATTEND Family Medicine
CPT/HCPCS: 71046

== ENCOUNTER → 2024-03-30 | Outpatient (CLI) | payer MEDICARE ==
--- NOTE | 2024-03-30 13:01 | XR ---
EXAMINATION TYPE: XR lumbosacral spine min 4V DATE OF EXAM: 03/30/2024 10:58 AM COMPARISON: None. CLINICAL INDICATION: Female, 64 years old with history of [id number] LBP, pain TECHNIQUE: Frontal, lateral, and bilateral oblique images of the lumbar spine are obtained. FINDINGS: Moderate to severe degenerative disc space narrowing L3-4 through L5-S1. Grade 1 anterior o h listhesis L4 and L5 measuring 8.8 mm. Grade 1 retrolisthesis L3 on L4 arthropathy. No evidence for compression fracture. No definite spondylolysis. IMPRESSION: Degenerative changes as outlined above. [facility], , 03/30/2024 12:59 PM
== END | disposition home or self-care (01) ==
LOC: RADXRYALE 10:43
PROVIDERS: ATTEND Family Medicine
DX: M51.16 Intervertebral disc disorders with radiculopathy, lumbar region (principal)
CPT/HCPCS: 72110